=== PATIENT | female | born 1940 | race Caucasian/White ===

== ENCOUNTER 2024-08-05 18:25 | Emergency (ER) | payer MEDICARE ==
[2024-08-05] MEDS ORDERED: Sodium Chloride 0.9% 10 ML Syringe FLUSH PRN (18:38)
[2024-08-05 18:55] LABS: BASOPHILS ABSOLUTE AUTO 0.1 x10^3/uL (0.0-0.2); BASOPHILS PERCENT AUTO 0.5 % (0.2-1.2); EOSINOPHILS ABSOLUTE AUTO 0.3 x10^3/uL (0.0-0.5); EOSINOPHILS PERCENT AUTO 2.5 % (0.0-4.0); HEMATOCRIT 37.6 % (33.0-47.0); HEMOGLOBIN 12.6 g/dL (12.0-16.0); IMMATURE GRAN ABSOLUTE AUTO 0.04 x10^3/uL (0.00-0.07); LYMPHOCYTES ABSOLUTE AUTO 1.7 x10^3/uL (1.0-4.8); LYMPHOCYTES PERCENT AUTO 16.5 % (25.0-50.0); MEAN CORPUSCULAR HEMOGLOBIN 30.7 pg (26.0-32.0); MEAN CORPUSCULAR HGB CONC 33.5 g/dL (32.0-36.0); MEAN CORPUSCULAR VOLUME 91.7 fL (78.0-93.0); MONOCYTES ABSOLUTE AUTO 0.6 x10^3/uL (0.0-0.8); MONOCYTES PERCENT AUTO 5.9 % (2.0-11.0); NEUTROPHILS ABSOLUTE AUTO 7.7 x10^3/uL (1.8-7.7); NEUTROPHILS PERCENT AUTO 74.2 % (50.0-80.0); PLATELET COUNT,PLT 211 x10^3/uL (130-400); WHITE BLOOD CELL COUNT,WBC 10.4 x10^3/uL (4.0-10.0)
[2024-08-05 19:15] LABS: A/G RATIO 0.93; ALBUMIN 3.7 g/dL (3.4-5.0); BILIRUBIN TOTAL 0.3 mg/dL (0.2-1.0); CALCIUM 8.8 mg/dL (8.5-10.1); CREATININE 0.9 mg/dL (0.55-1.02); EST CRCL DRUG DOSING (CG) 39.87 mL/min; POTASSIUM,K 4.6 mmol/L (3.5-5.1); PROTEIN TOTAL,TP 7.7 g/dL (6.4-8.2)
[2024-08-05 19:16] LABS: ANION GAP 10.6 mmol/L (5-15)
== END 2024-08-05 21:18 | disposition short-term general hospital (02) ==
LOC: VM.ED 18:25 → SUPCPDRO 18:25 → VM.ED 21:18
DX: S72.001A Fracture of unspecified part of neck of right femur, initial encounter for closed fracture (principal); S00.03XA Contusion of scalp, initial encounter; I10 Essential (primary) hypertension; E78.00 Pure hypercholesterolemia, unspecified; J45.909 Unspecified asthma, uncomplicated; E66.9 Obesity, unspecified; Z91.040 Latex allergy status; Z68.32 Body mass index [BMI] 32.0-32.9, adult; W19.XXXA Unspecified fall, initial encounter; Y93.01 Activity, walking, marching and hiking
CPT/HCPCS: 36415; 70450; 80053; 85025; 99284; 99285

== ENCOUNTER 2024-08-10 09:25 | Inpatient (IN) | payer MEDICARE ==
[2024-08-10] MEDS ORDERED: Acetaminophen 650 MG Tab.ER PO PRN (14:33)
[2024-08-10] MEDS ORDERED: Hypromellose 0.3% Ophth Soln 15 ML Bottle EYEBOTH PRN (15:34)
[2024-08-10] MEDS ORDERED: Acetaminophen/oxyCODONE 325-5 MG Tab PO PRN (16:04)
[2024-08-10] MEDS ORDERED: LIDOCAINE 4% TOP PRN (16:04)
[2024-08-10] MEDS: Acetaminophen 500 MG Tab PO PRN (18:14)
[2024-08-10] MEDS: Fish Oil/Omega-3 Fatty Acids 1 Gm Cap PO SCH (21:29)
[2024-08-10] MEDS: Beta-Carotene (Vitamin A) w/Vitamin C & E plus Minerals Tab PO SCH (21:29)
[2024-08-11 06:38] LABS: HEMATOCRIT 28.5 % (33.0-47.0); HEMOGLOBIN 9.5 g/dL (12.0-16.0); MEAN CORPUSCULAR HEMOGLOBIN 30.9 pg (26.0-32.0); MEAN CORPUSCULAR HGB CONC 33.3 g/dL (32.0-36.0); MEAN CORPUSCULAR VOLUME 92.8 fL (78.0-93.0); RED BLOOD CELL COUNT 3.07 x10^6/uL (4.00-5.50); WHITE BLOOD CELL COUNT,WBC 11.8 x10^3/uL (4.0-10.0)
[2024-08-11] MEDS: Vitamin B Complex Tab PO SCH (08:05)
[2024-08-11] MEDS: Zinc Sulfate 220 MG Cap PO SCH (08:05)
[2024-08-11] MEDS: Losartan 50 MG Tab PO SCH (08:05)
[2024-08-11] MEDS: Cyanocobalamin (Vitamin B12) 1,000 MCG Tab PO SCH (08:05)
[2024-08-11] MEDS: Aspirin 81 MG Tab.EC PO SCH (08:05)
[2024-08-11] MEDS: Ferrous Sulfate 325 MG Tab PO SCH (08:07)
[2024-08-11] MEDS: Enoxaparin 40 MG/0.4 ML Syringe SUBCUT SCH (09:57)
[2024-08-11] MEDS: [UNRECOGNIZED DRUG - OTHER] PO SCH (09:59)
[2024-08-11] MEDS ORDERED: oxyCODONE 5 MG Tab PO PRN (12:35)
[2024-08-11] MEDS ORDERED: Acetaminophen 650 MG Tab.ER PO PRN (13:18)
[2024-08-11] MEDS: Diclofenac Sodium 1% Gel 100 GM Tube TOP PRN (15:51)
[2024-08-11] MEDS: Acetaminophen 650 MG Tab.ER PO PRN (19:47)
[2024-08-11] MEDS ORDERED: CYCLOSPORINE 0.05% EYEBOTH SCH (21:00)
[2024-08-11] MEDS ORDERED: EYE EYEBOTH SCH (21:00)
[2024-08-11] MEDS: MAXIVISION PO SCH (21:14)
[2024-08-11] MEDS: EYE EYEBOTH SCH (21:14)
[2024-08-11] MEDS: CYCLOSPORINE 0.05% EYEBOTH SCH (21:14)
[2024-08-12] MEDS: Diltiazem 50 MG/10 ML SDV IVPUSH ONE ×3 (07:11→12:51)
[2024-08-12 07:14] LABS: CALCIUM 8.8 mg/dL (8.5-10.1); CREATININE 0.7 mg/dL (0.55-1.02); EST CRCL DRUG DOSING (CG) 51.26 mL/min; MAGNESIUM 2.1 mg/dL (1.8-2.4); POTASSIUM,K 3.9 mmol/L (3.5-5.1)
[2024-08-12 07:15] LABS: ANION GAP 12.9 mmol/L (5-15)
[2024-08-12 08:13] LABS: HEMATOCRIT 31.6 % (33.0-47.0); HEMOGLOBIN 10.4 g/dL (12.0-16.0); MEAN CORPUSCULAR HEMOGLOBIN 30.7 pg (26.0-32.0); MEAN CORPUSCULAR HGB CONC 32.9 g/dL (32.0-36.0); MEAN CORPUSCULAR VOLUME 93.2 fL (78.0-93.0); RED BLOOD CELL COUNT 3.39 x10^6/uL (4.00-5.50); WHITE BLOOD CELL COUNT,WBC 14.5 x10^3/uL (4.0-10.0)
[2024-08-12 08:30] LABS: ALBUMIN 2.9 g/dL (3.4-5.0); BILIRUBIN TOTAL 0.8 mg/dL (0.2-1.0); PROTEIN TOTAL,TP 7.1 g/dL (6.4-8.2); TSH ULTRASENSITIVE 1.325 uIU/mL (0.358-3.74)
[2024-08-12] MEDS: Diltiazem IR 60 MG Tab PO SCH (08:49)
[2024-08-12] MEDS: [UNRECOGNIZED DRUG - OTHER] PO SCH (08:50)
[2024-08-12] MEDS: [UNRECOGNIZED DRUG - OTHER] EYEBOTH PRN (09:17)
[2024-08-12] MEDS: Labetalol 20 MG/4 ML Syringe IVPUSH ONE (16:56)
[2024-08-12] MEDS: Apixaban 5 MG Tab PO SCH (20:05)
[2024-08-13] MEDS: Acetaminophen 325 MG Tab PO PRN (08:22)
[2024-08-14 07:13] LABS: HEMATOCRIT 31.5 % (33.0-47.0); HEMOGLOBIN 10.3 g/dL (12.0-16.0); MEAN CORPUSCULAR HEMOGLOBIN 30.7 pg (26.0-32.0); MEAN CORPUSCULAR HGB CONC 32.7 g/dL (32.0-36.0); RED BLOOD CELL COUNT 3.35 x10^6/uL (4.00-5.50); WHITE BLOOD CELL COUNT,WBC 15.4 x10^3/uL (4.0-10.0)
[2024-08-15] MEDS: [UNRECOGNIZED DRUG - OTHER] TOP PRN (08:44)
[2024-08-16] MEDS: Alendronate 70 MG Tab PO SCH (06:07)
[2024-08-17 07:11] LABS: HEMATOCRIT 30.6 % (33.0-47.0); MEAN CORPUSCULAR HEMOGLOBIN 30.8 pg (26.0-32.0); MEAN CORPUSCULAR HGB CONC 32.7 g/dL (32.0-36.0); MEAN CORPUSCULAR VOLUME 94.2 fL (78.0-93.0); RED BLOOD CELL COUNT 3.25 x10^6/uL (4.00-5.50); WHITE BLOOD CELL COUNT,WBC 10.4 x10^3/uL (4.0-10.0)
[2024-08-20 07:01] LABS: HEMATOCRIT 32.3 % (33.0-47.0); HEMOGLOBIN 10.7 g/dL (12.0-16.0); MEAN CORPUSCULAR HEMOGLOBIN 31.4 pg (26.0-32.0); MEAN CORPUSCULAR HGB CONC 33.1 g/dL (32.0-36.0); MEAN CORPUSCULAR VOLUME 94.7 fL (78.0-93.0); RED BLOOD CELL COUNT 3.41 x10^6/uL (4.00-5.50); WHITE BLOOD CELL COUNT,WBC 9.9 x10^3/uL (4.0-10.0)
[2024-08-23 07:47] LABS: HEMOGLOBIN 11.1 g/dL (12.0-16.0); MEAN CORPUSCULAR HGB CONC 32.6 g/dL (32.0-36.0); RED BLOOD CELL COUNT 3.58 x10^6/uL (4.00-5.50); WHITE BLOOD CELL COUNT,WBC 7.8 x10^3/uL (4.0-10.0)
[2024-08-26 07:03] LABS: HEMATOCRIT 36.6 % (33.0-47.0); HEMOGLOBIN 11.9 g/dL (12.0-16.0); MEAN CORPUSCULAR HEMOGLOBIN 30.8 pg (26.0-32.0); MEAN CORPUSCULAR HGB CONC 32.5 g/dL (32.0-36.0); MEAN CORPUSCULAR VOLUME 94.8 fL (78.0-93.0); RED BLOOD CELL COUNT 3.86 x10^6/uL (4.00-5.50); WHITE BLOOD CELL COUNT,WBC 7.6 x10^3/uL (4.0-10.0)
[2024-08-27 11:39] VITALS: BP 156/72; PULSE 75
== END 2024-08-27 11:00 | disposition home health service (06) | DRG 948 ==
LOC: VM.MS 12:13
PROVIDERS: ADMIT Family Medicine; ATTEND Nurse Practitioner Family
DX: R53.81 Other malaise (principal); I48.92 Unspecified atrial flutter; S72.001D Fracture of unspecified part of neck of right femur, subsequent encounter for closed fracture with routine healing; I25.10 Atherosclerotic heart disease of native coronary artery without angina pectoris; Z68.29 Body mass index [BMI] 29.0-29.9, adult; I10 Essential (primary) hypertension; M19.90 Unspecified osteoarthritis, unspecified site; J45.909 Unspecified asthma, uncomplicated; E53.8 Deficiency of other specified B group vitamins; E78.00 Pure hypercholesterolemia, unspecified; I35.0 Nonrheumatic aortic (valve) stenosis; E66.9 Obesity, unspecified; M85.80 Other specified disorders of bone density and structure, unspecified site; Z88.8 Allergy status to other drugs, medicaments and biological substances; Z91.040 Latex allergy status; Z79.899 Other long term (current) drug therapy; Z98.890 Other specified postprocedural states; Z79.82 Long term (current) use of aspirin; Z95.2 Presence of prosthetic heart valve
CPT/HCPCS: 36415; 80048; 82040; 82247; 83735; 84075; 84155; 84443; 84450; 84460; 85027; 93005; 97110-GO; 97110-GP; 97116-GP; 97161-GP; 97165-GO; 97530-GO; 97530-GP; 97535-GO; A9270-GY; J1650; J1920; J3490